=== PATIENT | male | born 1950 | race Caucasian/White ===

== ENCOUNTER 2018-08-17 17:31 | Emergency (ER) | payer MEDICARE ==
[2018-08-17] MEDS ORDERED: methylPREDNISolone Sod Succ/PF 125 MG/2 ML VIAL ONE (17:44)
[2018-08-17 17:59] LABS: #Basophils 0.1 thou/uL (0.0-0.2); #Eosinphils 0.2 thou/uL (0.0-0.7); #Lymphocytes 1.8 thou/uL (1.20-3.40); #Monocytes 0.7 thou/uL (0.11-0.59); #Neutrophils 5.9 thou/uL (1.40-6.50); %Basophils 1.3 % (0.0-1.0); %Eosinophils 2.1 % (0.0-10.0); %Lymphocytes 20.6 % (21.0-51.0); %Neutrophils 68.2 % (42.0-75.0); Hemoglobin 14.8 g/dL (14.0-18.0); Mean Corpuscular HGB CONC 34.9 g/dL (32.0-36.0); Mean Corpuscular Hemoglobin 32.7 pg (27.0-31.0); Mean Corpuscular Volume 93.7 fL (78.0-98.0); Mean Platelet Volume 6.6 fL (7.4-10.4); Platelet Count 226 thou/uL (130-400); RBC Distribution Width 11.2 % (11.5-14.5); Red Blood Cell (RBC) Count 4.53 mill/uL (4.70-6.10); White Blood Cell (WBC) Count 8.6 thou/uL (4.8-10.8)
[2018-08-17 18:11] LABS: Base Excess-Venous 4.2 mmol/L (0 (+/- 2.5)); Bicarbonate (HCO3v) 31.1 mmol/L (1.0-85.0); CO2 Tension (PvCO2) 53.5 mmHg (41.0-51.0); Calcium, Ionized 1.15 mmol/L (1.12-1.32); Hemoglobin - Calc 16.2 g/dL (12.0-18.0); O2 Tension (PvO2) 34.5 mmHg (35.0-45.0); Potassium 3.7 mmol/L (3.4-4.7); T. Carbon Dioxide 32.7 mmol/L (1.0-85.0); pH (Venous) 7.372 (7.35-7.45); vO2 Saturation-calc 63.3 % (94-98)
[2018-08-17 18:16] LABS: ALT (SGPT) 24 U/L (8-55); AST (SGOT) 22 U/L (5-34); Albumin 4.2 g/dL (3.4-4.8); Alkaline Phosphatase 73 U/L (40-150); Anion Gap 11 mmol/L (10-20); BUN (Urea Nitrogen) 9 mg/dL (8.4-25.7); Bilirubin, Total 0.6 mg/dL (0.2-1.2); Calc. Creatinine Clearance 0 mL/min (70-130); Calcium 9.3 mg/dL (7.8-10.44); Carbon Dioxide 29 mmol/L (23-31); Chloride 100 mmol/L (98-107); Estimated GFR-MDRD Greater than 90; Globulin 2.5 g/dL (2.4-3.5); Glucose 109 mg/dL (80-115); Potassium 3.9 mmol/L (3.5-5.1); Protein, Total 6.7 g/dL (5.8-8.1); Sodium 136 mmol/L (136-145)
[2018-08-17 18:18] LABS: Troponin I Less than 0.010 ng/mL (< 0.028)
[2018-08-17] MEDS ORDERED: Meclizine HCl 25 MG TAB ONE (19:02)
--- NOTE | 2018-08-17 21:27 | RAD ---
CHEST 08/17/18 PA and lateral views are compared with the 06/22/[address] [facility]. Calci fied granulomas are seen in the lung apices as usual in this patient with COPD. There are no lobar in filtrates or effusions to suggest pneumonia. There is no vascular congestion or edema. The heart is n ormal in size. IMPRESSION: COPD with chronic apical changes but no acute findings. POS: HOME
== END 2018-08-17 18:53 | disposition home or self-care (01) ==
LOC: BURERS 17:31
DX: J44.1 Chronic obstructive pulmonary disease with (acute) exacerbation (principal); E78.00 Pure hypercholesterolemia, unspecified; Z87.891 Personal history of nicotine dependence; Z79.899 Other long term (current) drug therapy
CPT/HCPCS: 71046; 80053; 82330; 82435; 82553; 82803; 83880; 84132; 84295; 84484; 85014; 85025; 93005; 96374; J2930; J7620

== ENCOUNTER 2018-11-24 20:40 | Emergency (ER) | payer MEDICARE ==
[2018-11-24] MEDS ORDERED: methylPREDNISolone Sod Succ/PF 125 MG/2 ML VIAL ONE (20:55)
[2018-11-24 21:14] LABS: #Basophils 0.1 thou/uL (0.0-0.2); #Eosinphils 0.2 thou/uL (0.0-0.7); #Lymphocytes 1.5 thou/uL (1.20-3.40); #Neutrophils 6.9 thou/uL (1.40-6.50); %Basophils 1.3 % (0.0-1.0); %Eosinophils 2.1 % (0.0-10.0); %Lymphocytes 15.2 % (21.0-51.0); %Monocytes 10.1 % (0.0-10.0); %Neutrophils 71.4 % (42.0-75.0); Hemoglobin 14.2 g/dL (14.0-18.0); Mean Corpuscular HGB CONC 33.7 g/dL (32.0-36.0); Mean Corpuscular Volume 98.1 fL (78.0-98.0); Mean Platelet Volume 6.5 fL (7.4-10.4); Platelet Count 202 thou/uL (130-400); RBC Distribution Width 11.7 % (11.5-14.5); Red Blood Cell (RBC) Count 4.31 mill/uL (4.70-6.10); White Blood Cell (WBC) Count 9.6 thou/uL (4.8-10.8)
[2018-11-24 21:28] LABS: ALT (SGPT) 19 U/L (8-55); AST (SGOT) 16 U/L (5-34); Albumin 4.1 g/dL (3.4-4.8); Alkaline Phosphatase 70 U/L (40-150); Anion Gap 12 mmol/L (10-20); BUN (Urea Nitrogen) 13 mg/dL (8.4-25.7); Bilirubin, Total 0.3 mg/dL (0.2-1.2); Calc. Creatinine Clearance 0 mL/min (70-130); Calcium 9.5 mg/dL (7.8-10.44); Carbon Dioxide 29 mmol/L (23-31); Chloride 100 mmol/L (98-107); Estimated GFR-MDRD 68; Globulin 2.4 g/dL (2.4-3.5); Glucose 94 mg/dL (80-115); Potassium 4.2 mmol/L (3.5-5.1); Protein, Total 6.5 g/dL (5.8-8.1); Sodium 137 mmol/L (136-145)
--- NOTE | 2018-11-24 23:13 | RAD ---
2922 PORTABLE CHEST 11/24/17 An AP portable film at 2034 is compared with the 08/17/18 study. COPD is present as usual. The lungs are hyperexpanded. There are no acute infiltrates or effusions. T here is no vascular congestion or edema. A calcified nodule is noted in the left lung apex. There is a linear irregularity in the right upper lobe that may be calcified that I do see on the prior study. I would note that small to medium sized nodules would be missed in this patient's chest without a CT . The last CT done was in 2015. IMPRESSION: COPD and chronic changes but no definite acute findings. POS: HOME
== END 2018-11-24 21:30 | disposition home or self-care (01) ==
LOC: BURERS 20:40
DX: J44.1 Chronic obstructive pulmonary disease with (acute) exacerbation (principal); Z87.891 Personal history of nicotine dependence; Z79.51 Long term (current) use of inhaled steroids
CPT/HCPCS: 71045; 80053; 83880; 84484; 85025; 93005; 94640; 96374; J2930; J7620

== ENCOUNTER 2019-01-21 21:20 | Emergency (ER) | payer MEDICARE ==
[2019-01-21 22:09] LABS: ALT (SGPT) 17 U/L (8-55); AST (SGOT) 18 U/L (5-34); Alkaline Phosphatase 66 U/L (40-150); Anion Gap 14 mmol/L (10-20); BUN (Urea Nitrogen) 9 mg/dL (8.4-25.7); Bilirubin, Total 0.5 mg/dL (0.2-1.2); Calc. Creatinine Clearance 0 mL/min (70-130); Calcium 9.3 mg/dL (7.8-10.44); Carbon Dioxide 24 mmol/L (23-31); Chloride 97 mmol/L (98-107); Estimated GFR-MDRD Greater than 90; Globulin 2.3 g/dL (2.4-3.5); Glucose 96 mg/dL (80-115); Potassium 4.2 mmol/L (3.5-5.1); Protein, Total 6.3 g/dL (5.8-8.1); Sodium 131 mmol/L (136-145)
[2019-01-21 22:11] LABS: Band 9 % (5-11); Eosinophils 2 % (0-10); Hemoglobin 14.4 g/dL (14.0-18.0); Lymphocytes 8 % (21-51); MDiff Complete? YES; Mean Corpuscular HGB CONC 33.3 g/dL (32.0-36.0); Mean Corpuscular Hemoglobin 32.2 pg (27.0-31.0); Mean Corpuscular Volume 96.8 fL (78.0-98.0); Mean Platelet Volume 6.5 fL (7.4-10.4); Monocytes 6 % (0-10); Neutrophil 74 % (42-75); Platelet Count 187 thou/uL (130-400); Platelet Morphology Comment Appears Adequate; RBC Distribution Width 11.2 % (11.5-14.5); RBC Morphology Normal; Red Blood Cell (RBC) Count 4.47 mill/uL (4.70-6.10); Small Platelets SLIGHT; Vacuoles SLIGHT; White Blood Cell (WBC) Count 11.2 thou/uL (4.8-10.8)
[2019-01-21] MEDS ORDERED: Ketorolac Tromethamine 30 MG/ML VIAL ONE (22:25)
[2019-01-21] MEDS ORDERED: cefTRIAXone\\ROCEPHIN 2 GM VIAL ONE (22:25)
[2019-01-21] MEDS ORDERED: Sodium Chloride 0.9% 100 ML ONE (22:27)
[2019-01-21] MEDS ORDERED: Albuterol Sulfate 1.25 MG/3 ML NEB ONE (22:51)
[2019-01-21] MEDS ORDERED: Magnesium Sulfate 2 GM/100 ML BAG ONE (23:54)
--- NOTE | 2019-01-22 11:29 | RAD ---
PORTABLE CHEST: 01/21/2019 COMPARISON: Prior study from 11/24/2018. CT chest dated 08/15/2016. FINDINGS: COPD is present, as usual. Areas of scarring are seen in the lung bases. Calcified granuloma is not ed in the apex of the left upper lobe. There is a slightly spiculated nodule in the right upper lobe , but it was present even in 2016 and is mostly calcified on the prior CT. There are no acute infilt rates seen. There is no congestion or edema. Heart size is normal. IMPRESSION: 1. Chronic obstructive pulmonary disease, but no acute pulmonary findings. 2. Various nodules, as noted, with little traveler changer time. POS: HOME
== END 2019-01-22 00:10 | disposition short-term general hospital (02) ==
LOC: BURERS 21:20
DX: J44.1 Chronic obstructive pulmonary disease with (acute) exacerbation (principal); N40.0 Benign prostatic hyperplasia without lower urinary tract symptoms; E78.5 Hyperlipidemia, unspecified; Z87.891 Personal history of nicotine dependence; Z79.899 Other long term (current) drug therapy; Z79.51 Long term (current) use of inhaled steroids
CPT/HCPCS: 36415; 71045; 80053; 83605; 83880; 84484; 85025; 87040; 87149; 94640; 94760; 96365; 96367; 96375; J0696; J1885; J3475; J3490; J7620

== ENCOUNTER 2019-03-08 15:46 | Emergency (ER) | payer MEDICARE ==
[2019-03-08] MEDS ORDERED: predniSONE 20 MG TAB ONE (16:01)
[2019-03-08 16:18] LABS: #Lymphocytes 0.6 thou/uL (1.20-3.40); #Monocytes 0.5 thou/uL (0.11-0.59); #Neutrophils 6.4 thou/uL (1.40-6.50); %Basophils 0.6 % (0.0-1.0); %Eosinophils 0.1 % (0.0-10.0); %Lymphocytes 8.1 % (21.0-51.0); %Monocytes 6.2 % (0.0-10.0); %Neutrophils 84.9 % (42.0-75.0); Hemoglobin 13.4 g/dL (14.0-18.0); Mean Corpuscular HGB CONC 30.8 g/dL (32.0-36.0); Mean Corpuscular Hemoglobin 31.3 pg (27.0-31.0); Mean Platelet Volume 6.2 fL (7.4-10.4); Platelet Count 212 thou/uL (130-400); RBC Distribution Width 12.2 % (11.5-14.5); Red Blood Cell (RBC) Count 4.27 mill/uL (4.70-6.10); White Blood Cell (WBC) Count 7.5 thou/uL (4.8-10.8)
[2019-03-08 16:23] LABS: CO2 Tension (PvCO2) 38.4 mmHg (40.0-50.0); pH (Venous) 7.438 (7.320-7.430)
[2019-03-08 16:24] LABS: Base Excess-Venous 1.8 mmol/L (-2.0 to 3.0); Chloride 99 mmol/L (98-107); Hemoglobin - Calc 14.5 g/dL (14.0-18.0); O2 Tension (PvO2) 88.1 mmHg (35.0-45.0); Potassium 4.1 mmol/L (3.5-5.1); Sodium 139 mmol/L (138-145); T. Carbon Dioxide 27.2 mmol/L (22.0-28.0); vO2 Saturation-calc 97.1 % (60.0-85.0)
[2019-03-08 16:25] LABS: Calcium, Ionized 1.12 mmol/L (See Comments:)
[2019-03-08 16:34] LABS: ALT (SGPT) 16 U/L (8-55); AST (SGOT) 14 U/L (5-34); Albumin 3.9 g/dL (3.4-4.8); Alkaline Phosphatase 73 U/L (40-150); Anion Gap 12 mmol/L (10-20); BUN (Urea Nitrogen) 13 mg/dL (8.4-25.7); Bilirubin, Total 0.3 mg/dL (0.2-1.2); Calc. Creatinine Clearance 0 mL/min (70-130); Calcium 8.9 mg/dL (7.8-10.44); Carbon Dioxide 28 mmol/L (23-31); Chloride 102 mmol/L (98-107); Estimated GFR-MDRD 89; Globulin 2.4 g/dL (2.4-3.5); Glucose 144 mg/dL (80-115); Potassium 4.1 mmol/L (3.5-5.1); Protein, Total 6.3 g/dL (5.8-8.1); Sodium 138 mmol/L (136-145)
--- NOTE | 2019-03-08 20:09 | RAD ---
PORTABLE CHEST: 03/08/19 An AP portable film at 1615 is compared with a 01/21/19 study. COPD is present as usual with hyperexpansion of the lungs. No acute infiltrate was seen. The heart si ze is normal. There are no congestive changes. Calcifications are seen in each upper lobe and have no t really changed substantially since the prior film. IMPRESSION: COPD, but no acute finding. POS: HOME
== END 2019-03-08 16:49 | disposition home or self-care (01) ==
LOC: BURERS 15:46
DX: J44.1 Chronic obstructive pulmonary disease with (acute) exacerbation (principal); Z87.891 Personal history of nicotine dependence; Z79.51 Long term (current) use of inhaled steroids
CPT/HCPCS: 71045; 80053; 82330; 82803; 83880; 84484; 85025; 93005; J7512; J7620

== ENCOUNTER 2021-03-27 08:53 | Emergency (ER) | payer OTHER, MEDICARE ==
[2021-03-27] MEDS ORDERED: Boostrix 0.5 ML (Tdap) VIAL ONE (10:01)
== END 2021-03-27 10:19 | disposition home or self-care (01) ==
LOC: BURERS 08:53
DX: S41.102A Unspecified open wound of left upper arm, initial encounter (principal); J44.9 Chronic obstructive pulmonary disease, unspecified; Z87.891 Personal history of nicotine dependence; Z23 Encounter for immunization; W01.0XXA Fall on same level from slipping, tripping and stumbling without subsequent striking against object, initial encounter
CPT/HCPCS: 90471; 90715

== ENCOUNTER 2022-10-29 15:11 | Emergency (ER) | payer MEDICARE | END 2022-10-29 16:23 | disposition home or self-care (01) | LOC: BURERS 15:11 | DX: S50.12XA Contusion of left forearm, initial encounter (principal); L72.0 Epidermal cyst; J44.9 Chronic obstructive pulmonary disease, unspecified; X58.XXXA Exposure to other specified factors, initial encounter; Z87.891 Personal history of nicotine dependence | CPT/HCPCS: 99282 ==